=== PATIENT | male | born 1970 | race Caucasian/White ===

== ENCOUNTER → 2017-03-12 | Outpatient (CLI) | payer OTHER ==
[~2017-03-12] MED LIST: CONRAY-43 43% 50ML VIAL (Q9960) As Ordered ONE
--- NOTE | 2017-03-12 10:06 | REP ---
MR ARTHROGRAPHY LEFT SHOULDER WITH PRE AND POST INTRA-ARTICULAR GADOLINIUM ENHANCED SALINE INJECTED IMAGING: HISTORY: Left shoulder pain. Comparison MRI study of the left shoulder is from March 31, 2009. TECHNIQUE: The injection procedure is performed and dictated separately. Pre and post intra-articular gadolinium enhanced saline injected imaging is acquired. Imaging planes include axial, oblique coronal, oblique sagittal and ABER projection images. T1 T2-weighted scans are included with and without fat saturation. MRI FINDINGS: Pre-injection MR imaging demonstrate cortical and medullary bone signal intensity are normal. Osteoarthritic hypertrophy is seen at the AC joint. The glenohumeral and acromioclavicular joints are normally aligned. There is a small sliver of subacromial bursal fluid. There is still increased signal intensity underlying the superior labrum suggesting a SLAP lesion. Today's pre-injection MR imaging shows focal T2 hyperintensity in the distal supraspinatus tendon consistent with a focal distal supraspinatus cuff tear full-thickness without evidence of retraction. Post-injection MR imaging shows good filling enhancement of the left glenohumeral articulation. Post-injection images confirm the presence of a full-thickness rotator cuff tear with contrast opacification on T1-weighted scans throughout the subacromial subdeltoid bursal effusion. The distal supraspinatus lesion is seen. There is heterogeneous increased signal intensity at the attachment of the subscapularis tendon as well. Infraspinatus and biceps tendons appear to be intact. No anterior labral cartilage tear is seen. No posterior labral cartilage tear is appreciated. No loose body is seen. ABER images show no evidence of labral tear. No juxta-articular cyst or mass is seen. IMPRESSION: 1. Findings again suspicious for a nondisplaced SLAP tear. 2. Full-thickness cuff tear involving the distal supraspinatus tendon. Advanced tendinosis change involving the distal subscapularis tendon. 3. AC joint osteoarthritis. 4. Subacromial subdeltoid bursal effusion. Signed by Rudi Cintron MD 03/12/2017 01:33 P
--- NOTE | 2017-03-12 15:48 | REP ---
LEFT SHOULDER ARTHROGRAM: The procedure was performed under the direct supervision of Dr. Cintron. The benefits and risks including, but not limited to pain, infection, bleeding, and anaphylaxis were explained to the patient and informed consent was obtained. The left glenohumeral joint space was localized using fluoroscopic guidance. The skin was prepped and draped in a sterile fashion. 1% lidocaine was used as a local anesthetic. Using fluoroscopic guidance a 22-gauge spinal needle was inserted and advanced into the joint. 0.5 mL of Conray-43 was injected to verify placement. 11 mL of a solution containing 20 mL of sterile saline and 0.15 mL of ProHance was injected. The needle was removed and the patient was taken to MRI for postprocedural imaging. The patient tolerated the procedure well and there were no immediate complications. 1 second of fluoroscopy time was utilized for this procedure. Reviewed by BELLA Crawford 03/13/2017 04:13 PEdited and Signed by Rudi Cintron MD 03/13/2017 04:51 P
== END | disposition home or self-care (01) ==
LOC: M RADPRO 07:01
PROVIDERS: ATTEND Physician Assistant
DX: M75.102 Unspecified rotator cuff tear or rupture of left shoulder, not specified as traumatic (principal); M19.012 Primary osteoarthritis, left shoulder; M25.412 Effusion, left shoulder
CPT/HCPCS: 23350; 73223; 77002; A9576; Q9960

== ENCOUNTER → 2017-04-09 | Day surgery (SDC) | payer OTHER ==
[~2017-04-09] VITALS: Ht 172.7 cm; Wt 77.1 kg
[~2017-04-09] MED LIST changes: -CONRAY-43 43% 50ML VIAL (Q9960) As Ordered ONE; +DRON40TA PO; +EPINEPHrine 1MG/ML INJ 30ML MD-VIAL As Ordered ONE; +GLYCOPYRROLATE INJ 0.2 MG/ML 2 ML VIAL As Ordered ONE; +HYDROmorphone HCL 1 MG/ML SYRINGE (J1170) IV PRN; +KETOROLAC 60 MG/2 ML VIAL (J1885) As Ordered ONE; +LIDOCAINE 1% MDV 20ML VIAL ONE; +LIDOCAINE 2% INJ 100 MG/5 ML SDV (FOR ANES.) As Ordered ONE; +LR 1,000 ML IV SCH; +MIDAZOLAM INJ 2 MG/2 ML VIAL (J2250) As Ordered ONE; +MIDAZOLAM INJ 2 MG/2 ML VIAL (J2250) IV ONE; +NEOSTIGMINE 1MG/ML 5 ML SYRINGE (J2710) As Ordered ONE; +ONDANSETRON 4MG/2ML VIAL (J2405) As Ordered ONE; +ONDANSETRON 4MG/2ML VIAL (J2405) IV PRN; +PERCOCET 5MG/325MG TAB PO PRN; +PROPOFOL 200 MG/20 ML VIAL As Ordered ONE; +ROCURONIUM BROMIDE 50 MG/5 ML VIAL/SYRINGE As Ordered ONE; +ROPIvacaine 0.5% 30 ML INJECTION (J2795) ONE; +XARE20TA PO; +dexameTHASONE 10 MG/1 ML VIAL PRES.FREE (J1100) ONE; +dexameTHASONE 4 MG/ML 1ML VIAL (J1100) As Ordered ONE; +fentaNYL 100 MCG/2 ML INJECTION (J3010) As Ordered ONE; +fentaNYL 100 MCG/2 ML INJECTION (J3010) IV ONE; +fentaNYL 100 MCG/2 ML INJECTION (J3010) IV PRN; +fentaNYL 250 MCG/5 ML INJECTION (J3010) As Ordered ONE
--- NOTE | 2017-04-09 11:38 | REP ---
Clinical: Post-op evaluation. Technique: Single neutral view of the left shoulder. Findings: Acromioclavicular joint separation cannot be excluded. No obvious acute fracture. Glenohumeral joint appears normal. The subacromial space on current image is decreased to roughly 2 mm. Impression: Findings as discussed above. Signed by Bacilio Mccarty MD 04/09/2017 11:29 A
[2017-04-09 12:40] VITALS: BP 117/59
--- NOTE | 2017-04-10 09:13 | RO ---
DATE OF PROCEDURE: 04/09/2017 PREOPERATIVE DIAGNOSIS: Left shoulder rotator cuff tear, AC joint arthritis and degenerative SLAP tear. POSTOPERATIVE DIAGNOSIS: Left shoulder rotator cuff tear to include subscapularis, AC joint arthritis and degenerative SLAP tear. PROCEDURE PERFORMED: Left shoulder exam under anesthesia. Diagnostic arthroscopy. Arthroscopic subscapularis repair. Arthroscopic biceps tenodesis. Arthroscopic supraspinatus repair. Subacromial bursectomy. Open distal clavicle excision. SURGEON: Bala Bhandari MD REHABILITATION DIRECTOR: TAB Frazier ANESTHESIA GIVEN: General endotracheal anesthesia and interscalene nerve block. IMPLANTS USED: Arthrex 4.75 SwiveLock for the subscapularis and biceps tenodesis. Arthrex speedbridge kit for rotator cuff repair. MATERIAL SENT TO LAB: None. COMPLICATIONS: None. ANTIBIOTICS: 2 grams Ancef given within 1 hour of incision. INDICATION FOR PROCEDURE: Roni Chapa is a 46-year-old right hand dominant male with a longstanding history of left shoulder pain that has been significantly activity limiting. He has undergone multiple rounds of nonoperative treatment to include physical therapy, injections, and activity modifications. The patient had radiographic and clinical exam findings consistent with symptomatic rotator cuff tear, AC joint arthritis and symptomatic SLAP tear. I discussed with the patient the risks, benefits, indications and alternatives of operative versus nonoperative treatment. The patient elected to proceed with left shoulder rotator cuff repair, open distal clavicle excision, biceps tenodesis and other indicated procedures based on arthroscopic findings. Informed consent was obtained. INTRAOPERATIVE FINDINGS: The patient had a full thickness anterior supraspinatus tear and a upper boarder subscapularis tear. There is a degenerative SLAP tear. No significant chondromalacia on the glenoid or humeral head. There were no anterior or posterior labral tears. No loose bodies in the axillary pouch. Exam under anesthesia demonstrated full passive range of motion with a grade 1 anterior and posterior load shift. DESCRIPTION OF PROCEDURE: The patient was positively identified in the preop holding area where the surgical site was marked. He was given interscalene nerve block by the anesthesia service for postop pain control. He was brought to the operating room and was placed under general endotracheal anesthesia. He was seated in a beach chair position with all bony prominences appropriately padded. Sequential compression devices (SCD) were placed on the lower extremities for deep vein thrombosis (DVT) prophylaxis. I performed my exam under anesthesia with the above noted findings. The patient was prepped and draped in the usual fashion. A final time out was performed. I began by making a standard posterior viewing portal for the diagnostic arthroscopy and identified the subscapularis tear. At this point I made an anterior working portal for anchor placement and an anterior superolateral portal for debridement and suture passage for the subscapularis repair. Two 8 mm twist in cannulas were placed into these portals. I evaluated the degenerative SLAP tear and elected to perform biceps tenodesis. The long head of the biceps tendon was tagged with a FiberWire suture and then biceps tenotomy was performed. The residual degenerative SLAP tear was debrided. I evaluated the rotator cuff tear and identified the edge of the full thickness rotator cuff tear and then debrided the upper border of the subscapularis tear and I used a shaver to prepare the lesser tuberosity for placement of the anchor. I then passed a single whip stitch into the subscapularis tendon using a scorpion. I then placed a single 4.75 SwiveLock anchor at the upper portion of the lesser tuberosity including both the biceps tendon repair and the long head of the biceps tendon sutures and the subscapularis sutures for the tenodesis and subscap repair. Once this was complete, I then turned my attention to the subacromial space where I performed a subacromial bursectomy and identified the full thickness crescent shaped rotator cuff tear on the anterior aspect of the supraspinatus. I then debrided the residual tendon from its attachment. I prepared the bony bed of the greater tuberosity. Then, after preparing the greater tuberosity, I placed medial row anchors followed by passage of the sutures through the supraspinatus tendon. I then cut these sutures and then put the sutures through two SwiveLock anchors and then placed lateral row anchors using two 4.75 SwiveLock in a standard fashion. There was a small dog ear anteriorly, which was repaired using the safety suture from the anterior medial row anchor. This reduced nicely. I then took final photos of the supraspinatus repair. I went back into the glenohumeral joint, demonstrated reduction of the supraspinatus tendon to its attachment, took final phots and then removed arthroscopic instruments. I then proceeded to the distal clavicle excision. I made a 3 cm incision in line with the AC joint, dissected through skin and subcutaneous tissue, identified the trapezial fascia. The trapezial fascia and periosteum of the distal clavicle were incised perpendicular to the AC joint. I raised anterior and posterior flaps or later closure. I then skeletonized the distal clavicle, placed Crego elevators underneath the distal clavicle and then this was followed by resection of approximately 1 cm of distal clavicle. At this point, the wound was thoroughly irrigated with normal saline and then closed in layers with #0 Vicryl for the trapezial fascia, #2-0 Vicryl for the subcutaneous layer, and Monocryl for the skin. The arthroscopy wounds were closed with interrupted #4-0 Monocryl sutures. Sterile dressings were applied and this ended the procedure. I was present and scrubbed for all critical portions of the case. POSTOPERATIVE PLAN: The patient will be discharged to home today. He will undergo subscapularis repair therapy protocol and present to the clinic in 10-14 days for a wound check. DIEGO
== END | disposition home or self-care (01) ==
LOC: M SDC 06:10
PROVIDERS: ATTEND Orthopaedic Surgery
DX: S43.432A Superior glenoid labrum lesion of left shoulder, initial encounter (principal); M75.122 Complete rotator cuff tear or rupture of left shoulder, not specified as traumatic; M19.012 Primary osteoarthritis, left shoulder; I48.92 Unspecified atrial flutter; R29.898 Other symptoms and signs involving the musculoskeletal system; R06.02 Shortness of breath; M54.9 Dorsalgia, unspecified; Z88.5 Allergy status to narcotic agent; Z79.01 Long term (current) use of anticoagulants; Z79.899 Other long term (current) drug therapy; X58.XXXA Exposure to other specified factors, initial encounter; Y92.89 Other specified places as the place of occurrence of the external cause; Y93.89 Activity, other specified; Y99.8 Other external cause status
CPT/HCPCS: 23120; 29827; 29828; 73020; A4649; J0690; J1100; J1885; J2250; J2405; J2710; J2795; J3010

== ENCOUNTER → 2022-12-10 | Outpatient (CLI) | payer OTHER ==
[~2022-12-10] MED LIST changes: +DRON400T PO; -DRON40TA PO; -EPINEPHrine 1MG/ML INJ 30ML MD-VIAL As Ordered ONE; -GLYCOPYRROLATE INJ 0.2 MG/ML 2 ML VIAL As Ordered ONE; -HYDROmorphone HCL 1 MG/ML SYRINGE (J1170) IV PRN; -KETOROLAC 60 MG/2 ML VIAL (J1885) As Ordered ONE; +LIDOCAINE 1% MDV 20ML VIAL As Ordered ONE; -LIDOCAINE 1% MDV 20ML VIAL ONE; -LIDOCAINE 2% INJ 100 MG/5 ML SDV (FOR ANES.) As Ordered ONE; -LR 1,000 ML IV SCH; -MIDAZOLAM INJ 2 MG/2 ML VIAL (J2250) As Ordered ONE; -MIDAZOLAM INJ 2 MG/2 ML VIAL (J2250) IV ONE; -NEOSTIGMINE 1MG/ML 5 ML SYRINGE (J2710) As Ordered ONE; -ONDANSETRON 4MG/2ML VIAL (J2405) As Ordered ONE; -ONDANSETRON 4MG/2ML VIAL (J2405) IV PRN; -PERCOCET 5MG/325MG TAB PO PRN; -PROPOFOL 200 MG/20 ML VIAL As Ordered ONE; -ROCURONIUM BROMIDE 50 MG/5 ML VIAL/SYRINGE As Ordered ONE; -ROPIvacaine 0.5% 30 ML INJECTION (J2795) ONE; -dexameTHASONE 10 MG/1 ML VIAL PRES.FREE (J1100) ONE; -dexameTHASONE 4 MG/ML 1ML VIAL (J1100) As Ordered ONE; -fentaNYL 100 MCG/2 ML INJECTION (J3010) As Ordered ONE; -fentaNYL 100 MCG/2 ML INJECTION (J3010) IV ONE; -fentaNYL 100 MCG/2 ML INJECTION (J3010) IV PRN; -fentaNYL 250 MCG/5 ML INJECTION (J3010) As Ordered ONE
[2022-12-10 11:45] VITALS: BP 136/62
[2022-12-10 12:37] LABS: EOS % 0.7 % (0.0-3.0); HEMATOCRIT 37.2 % (42.0-52.0); HEMOGLOBIN 12.2 g/dl (13.5-17.5); LYMPH # 1.7 10^3/uL (1.5-5.0); LYMPH % 63.7 % (24.0-44.0); MEAN CORPUSCULAR HEMOGLOBIN 31.9 pg (27.0-33.0); MEAN CORPUSCULAR HGB CONC 32.8 g/dl (32.0-36.5); MEAN CORPUSCULAR VOLUME 97.4 fl (80.0-96.0); MONO % 1.1 % (2.0-8.0); NEUTROPHILS % 34.5 % (36.0-66.0); PLATELET COUNT, AUTOMATED 146 10^3/uL (150-450); RED BLOOD COUNT 3.82 10^6/uL (4.30-6.10); WHITE BLOOD COUNT 2.7 10^3/uL (4.0-10.0)
[2022-12-10 13:07] LABS: NEUTROPHILS # 0.9 10^3/uL (1.5-8.5)
== END ==
LOC: M IRPRO 11:31
PROVIDERS: ATTEND Internal Medicine Medical Oncology
DX: C95.90 Leukemia, unspecified not having achieved remission (principal); R93.7 Abnormal findings on diagnostic imaging of other parts of musculoskeletal system

== ENCOUNTER → 2023-09-25 | Outpatient (CLI) | payer OTHER ==
[~2023-09-25] MED LIST changes: +ACYC1TAB PO; +BACT800T5 PO; -LIDOCAINE 1% MDV 20ML VIAL As Ordered ONE
== END ==
LOC: M RAD 08:04
PROVIDERS: ATTEND Nurse Practitioner
DX: R74.01 Elevation of levels of liver transaminase levels (principal)

== ENCOUNTER → 2023-10-09 | Outpatient (CLI) | payer OTHER ==
[~2023-10-09] MED LIST changes: +LIDOCAINE 1% MDV 20ML VIAL As Ordered ONE
[2023-10-09 11:45] VITALS: TEMP 98.6
[2023-10-09 12:12] LABS: BASO % 0.2 % (0.0-1.0); EOS # 0.2 10^3/uL (0.0-0.5); EOS % 2.6 % (0.0-3.0); HEMATOCRIT 43.8 % (42.0-52.0); HEMOGLOBIN 14.4 g/dl (13.5-17.5); LYMPH # 1.8 10^3/uL (1.5-5.0); LYMPH % 20.8 % (24.0-44.0); MEAN CORPUSCULAR HEMOGLOBIN 30.3 pg (27.0-33.0); MEAN CORPUSCULAR HGB CONC 32.9 g/dl (32.0-36.5); MEAN CORPUSCULAR VOLUME 92.2 fl (80.0-96.0); MONO # 0.9 10^3/uL (0.0-0.8); NEUTROPHILS # 5.6 10^3/uL (1.5-8.5); NEUTROPHILS % 66.2 % (36.0-66.0); PLATELET COUNT, AUTOMATED 155 10^3/uL (150-450); RED BLOOD COUNT 4.75 10^6/uL (4.30-6.10); WHITE BLOOD COUNT 8.5 10^3/uL (4.0-10.0)
[2023-10-09 12:37] LABS: ALKALINE PHOSPHATASE 75 U/L (46-116); ALT/SGPT 38 U/L (7.0-40); AST/SGOT 30 U/L (<34); BILIRUBIN,TOTAL 0.5 MG/DL (0.3-1.2); BLOOD UREA NITROGEN 33 MG/DL (9-23); CALCIUM LEVEL 8.9 MG/DL (8.5-10.1); CARBON DIOXIDE LEVEL 31 MMOL/L (20-31); CHLORIDE LEVEL 106 MMOL/L (98-107); CREATININE FOR GFR 0.97 MG/DL (0.70-1.30); GLOMERULAR FILTRATION RATE > 60.0 (>56); GLUCOSE, FASTING 77 MG/DL (60-100); SODIUM LEVEL 140 MMOL/L (136-145); TOTAL PROTEIN 6.5 G/DL (5.7-8.2)
[2023-10-09 12:54] LABS: INR 1.08; PROTHROMBIN TIME 13.7 SECONDS (12.5-14.5)
[2023-10-09 13:28] VITALS: BP 128/64; O2SAT 98
== END ==
LOC: M IRPRO 11:27
PROVIDERS: ATTEND Nurse Practitioner
DX: C91.40 Hairy cell leukemia not having achieved remission (principal)

== ENCOUNTER → 2024-12-10 | Outpatient (REF) | payer OTHER ==
[~2024-12-10] MED LIST changes: -LIDOCAINE 1% MDV 20ML VIAL As Ordered ONE
[2024-12-10 19:36] LABS: APPEARANCE, URINE CLEAR (CLEAR); BACTERIA, URINE AUTO NEGATIVE (NEGATIVE); BILIRUBIN, URINE AUTO NEGATIVE (NEGATIVE); BLOOD, URINE BLOOD NEGATIVE (NEGATIVE); COLOR, URINE STRAW (YELLOW); GLUCOSE, URINE (UA) AUTO NEGATIVE (NEGATIVE); KETONE, URINE AUTO NEGATIVE (NEGATIVE); LEUKOCYTE ESTERASE, URINE AUTO NEGATIVE (NEGATIVE); NITRITE, URINE AUTO NEGATIVE (NEGATIVE); PROTEIN, URINE AUTO NEGATIVE (NEGATIVE); RBC, URINE AUTO 0 /HPF (0-3); SQUAMOUS EPITHELIAL CELL UR AU 0 /HPF (0-6); UROBILINOGEN, URINE AUTO 0.2 mg/dL (0.0-2.0); WBC, URINE AUTO 1 /HPF (0-3)
== END ==
LOC: M SMT 16:52
PROVIDERS: ATTEND Nurse Practitioner Family
DX: R31.0 Gross hematuria (principal)

== ENCOUNTER → 2024-12-21 | Outpatient (CLI) | payer OTHER ==
[~2024-12-21] MED LIST changes: +ISOVUE-370 76% 100ML VIAL As Ordered ONE
== END ==
LOC: M RAD 16:03
PROVIDERS: ATTEND Nurse Practitioner Family
DX: R31.0 Gross hematuria (principal)

== ENCOUNTER → 2025-07-08 | Outpatient (REF) | payer OTHER ==
[~2025-07-08] MED LIST changes: +ACYC-438 PO; -ACYC1TAB PO; -ISOVUE-370 76% 100ML VIAL As Ordered ONE
[2025-07-08 17:30] LABS: APPEARANCE, URINE CLEAR (CLEAR); BACTERIA, URINE AUTO NEGATIVE (NEGATIVE); BILIRUBIN, URINE AUTO NEGATIVE (NEGATIVE); BLOOD, URINE BLOOD NEGATIVE (NEGATIVE); GLUCOSE, URINE (UA) AUTO NEGATIVE (NEGATIVE); KETONE, URINE AUTO NEGATIVE (NEGATIVE); LEUKOCYTE ESTERASE, URINE AUTO NEGATIVE (NEGATIVE); NITRITE, URINE AUTO NEGATIVE (NEGATIVE); PROTEIN, URINE AUTO NEGATIVE (NEGATIVE); RBC, URINE AUTO 0 /HPF (0-3); SPECIFIC GRAVITY URINE AUTO 1.014 (1.002-1.035); SQUAMOUS EPITHELIAL CELL UR AU 0 /HPF (0-6); UROBILINOGEN, URINE AUTO 0.2 mg/dL (0.0-2.0); WBC, URINE AUTO 0 /HPF (0-3)
== END ==
LOC: M SMT 16:58
PROVIDERS: ATTEND Urology
DX: Z87.898 Personal history of other specified conditions (principal)